=== PATIENT | male | born 1995 | race Caucasian/White ===

== ENCOUNTER 2018-03-27 09:48 | Emergency (ER) | payer MEDICAID ==
[2018-03-27] MEDS: IBUPROFEN 800 MG TAB PO (10:24)
[2018-03-27] MEDS ORDERED: NAPROXEN 500 MG TAB PO (10:30)
== END 2018-03-27 10:59 | disposition home or self-care (01) ==
LOC: FTE 09:48
DX: S62.396A Other fracture of fifth metacarpal bone, right hand, initial encounter for closed fracture (principal); X58.XXXA Exposure to other specified factors, initial encounter; Y92.9 Unspecified place or not applicable
CPT/HCPCS: 29125; 73130-RT; 99283-25